=== PATIENT | male | born 1965 | race Caucasian/White ===

== ENCOUNTER 2016-08-14 20:17 | Emergency (ER) ==
--- NOTE | 2016-08-14 22:02 | PROVIDER DOCUMENTATION ---
HPI-Musculoskeletal Pain/Inj - GENERAL Source: patient - HX OF PRESENT ILLNESS-MUSKULOSKELTAL Quality of Pain: reports: aching Severity in ED: moderate Onset/Duration: 4 days ago Timing: still present Modifying Factors: improves with: nothing Any recent injury?: No Locality of Occurance: Home Similar Symptoms Previously?: No Recently seen or treated by another doctor?: No - BACK & NECK PAIN/INJURY Back/Neck Pain Location: reports: lumbar spine Back/Neck Pain Radiation: reports: Upper Legs (anterior legs) History of Chronic Neck or Back Pain?: No <Rosalinda Silva - Last Filed: 08/14/16 23:51> <Joe Oconnor - Last Filed: 08/15/16 01:31> - GENERAL Chief Complaint: Back Pain Stated Complaint: BACK PAIN/COUGH/CONGESTION Time Seen by Provider: 08/14/16 21:25 - HX OF PRESENT ILLNESS-MUSKULOSKELTAL Nature of Presenting Problem: 51 year old M presents to the ED with a cc of lower back pain with an onset of 4 days ago. PT denies loss of bowel or bladder. PT states that he has been working on a truck for the past 2 weeks. (Rosalinda Silva) Review of Systems - Adult - REVIEW OF SYSTEMS - ADULT Constitutional: denies: chills, fever Genitourinary: reports: other (numbness to genital area). denies: dysuria, hematuria, urinary retention Musculoskeletal: reports: back pain. denies: neck pain <Rosalinda Silva - Last Filed: 08/14/16 23:51> Past History - Adult - PAST MEDICAL HISTORY-ADULT Review of Records: reports: Nursing Assessment Review, Medications Reviewed Major Childhood Illnesses: reports: denies history Cardiovascular: reports: HTN, hyperlipidemia, HI Respiratory: reports: denies history Gastrointestinal: reports: denies history Obstetrical/Gynecological: reports: denies history Genitourinary: reports: denies history Musculoskeletal: reports: chronic pain (knee) Neurological: reports: denies history Endocrine/Immune: reports: Diabetes Other Conditions: reports: denies history - PRIOR SURGERIES/PROCEDURES Surgical/Procedure History: reports: tonsillectomy, other (hernia repair) <Rosalinda Silva - Last Filed: 08/14/16 23:51> Physical Exam-Injury Related - Physical Exam-Injury Related Initial Vital Signs Reviewed: Yes General Appearance: appears well, alert, no apparent distress Respiratory: chest non-tender, lungs clear, normal breath sounds Cardiovascular: normal peripheral pulses, regular rate, rhythm, no edema Abdominal Exam: tenderness (right flank) Back Exam: other (lower lumbar paraspinal muscle tenderness) Integumentary: normal color, warm/dry Psych/Mental Status: normal mood/affect, normal thought content, normal thought process, oriented x 3 <Rosalinda Silva - Last Filed: 08/14/16 23:51> Progress <Rosalinda Silva - Last Filed: 08/14/16 23:51> - CT/MRI 1 CT Study: Lumbar Spine Impression: Abnormal (No fx, disc bulges at L4-5 and L5-S1 with spinal stenosis. An MRI is suggested. - radiology) <Joe Oconnor - Last Filed: 08/15/16 01:31> - PLAN OF CARE/RESULTS Progress/Plan/Lab Results: Orders Category Date Time Status Finger Stick Blood Sugar (ED) DIRECTED Care 08/14/16 22:27 Active CHEST-2 VIEWS [RAD] Stat Exams 08/14/16 21:26 Taken LUMBAR SPINE W/O CONTRAST [CT] Stat Exams 08/14/16 22:26 Draft UA [URINALYSIS PL W/POSS RFLX CULT] [URINALYSIS] Stat Lab 08/15/16 00:07 Completed URINE CULTURE [RM] Routine Lab 08/15/16 01:19 Ordered Dexamethasone [Decadron] Med 08/15/16 01:27 Discontinued 10 mg IM NOW ONE Hydromorphone [Dilaudid] Med 08/14/16 22:27 Discontinued 2 mg IM NOW ONE Promethazine [Phenergan] Med 08/14/16 22:27 Discontinued 25 mg IM NOW ONE Laboratory Tests 08/15/16 00:07 Urine Source CLEAN CATCH Urine Color YELLOW Urine Clarity CLEAR Urine pH 7.0 Ur Specific [place] 1.015 Urine Protein 1+(30 mg/dL) A Urine Ketones TRACE Urine Blood NEGATIVE Urine Nitrite NEGATIVE Urine Bilirubin NEGATIVE Urine Urobilinogen 3+(8 mg/dL) Urine Microscopic RBC <10 Urine WBC TRACE A Urine Microscopic WBC <10 Ur Epithelial Cells <10 Urine Crystals CA OXALATE PRESENT Urine Bacteria 3+ Urine Glucose NEGATIVE Vital Signs - 24 hr 08/14/16 20:22 Temperature 98.0 F Pulse Rate 94 H Respiratory 16 Rate Blood Pressure 154/92 O2 Sat by Pulse 99 Oximetry (Joe Oconnor) Departure <Rosalinda Silva - Last Filed: 08/14/16 23:51> - Departure Time of Disposition Order: 01:22 Certified Medical Emergency: Emergent <Joe Oconnor - Last Filed: 08/15/16 01:31> - Departure DIAGNOSIS: Spinal stenosis at L4-L5 level, L4-L5 disc bulge, Bacteria in urine Disposition: HOME 01 Condition: Stable Additional Instructions: FOLLOW UP DR. VITA LOUIE, [facility] WITH THE SPINAL SURGEON OF YOUR CHOICE. RETURN TO [facility] FOR AN OUT-PATIENT MRI OF YOUR LUMBAR SPINE TOMORROW MORNING. ED Follow Up Instructions: You have been treated by a care provider in the Emergency Department. These instructions are being provided to you so you can have an understanding of how to care for yourself upon discharge. Upon discharge from the Emergency Department, you are responsible for making arrangements for follow-up care by a physician of your choice. Take all prescribed medications as directed. Return to the Emergency Department immediately for any new or worsening symptoms. You may call the Physician Referral phone number at [phone] to obtain a list of Physicians who are taking new patients. Prescriptions: Cyclobenzaprine [Flexeril] 10 mg PO TID #20 tablet Ibuprofen [Motrin] 800 mg PO Q8H PRN PRN #20 tablet PRN Reason: inflammation Omeprazole [Prilosec] 20 mg PO DAILY@0700 #20 capsule Referrals: TJ RUSSO CRNP [Primary Care Provider] - Joe Louie DO [STAFF PHYSICIAN] - Call for Appoint. 1-2days Attestation - Scribe Verification/Attestation Scribe:: Rosalinda Silva Acting as Scribe for:: Joe Oconnor Scribe documention review:: This chart was documented by a scribe and accurately reflects the service the provider performed and the decisions made by the provider. <Rosalinda Silva - Last Filed: 08/14/16 23:51> - Physician/ DC Attestation Patient care was provided by Advanced Practice Provider:: Yes Advanced Practice Provider:: Joe Oconnor Advanced Practice Provider documentation review:: The Mid-level provider documentation, treatment plan and medical decision making was reviewed by the physician who agrees with all treatment and medical decision making by the MLP. <Joe Oconnor - Last Filed: 08/15/16 01:31> Physician Attestation
[2016-08-14] MEDS ORDERED: PHENERGAN IM ONE (22:27)
[2016-08-14] MEDS ORDERED: DILAUDID IM ONE (22:27)
[2016-08-15 00:29] LABS: URINE SOURCE CLEAN CATCH
--- NOTE | 2016-08-15 01:14 | Diag Imaging Result Document ---
PROCEDURE NAME: LUMBAR SPINE W/O CONTRAST - 08/14/2016 STUDY: CT lumbar spine without contrast. Good alignment of the lumbar spine. No compressed vertebrae. No other fracture. No subluxation. No prominent bone spurring. There is prominent facet hypertrophy at L4-5. There are bulging disks at L4-5 and L5-S1. There is at least moderate spinal stenosis at L4-5 with at least mild narrowing at each neural foramen. Central disk protrusion at L5-S1, but only mild spinal stenosis with [id number] narrowing of the right neural foramen. IMPRESSION: 1. No fracture. 2. Bulging disks in the lower lumbar spine with spinal stenosis and neuroforaminal narrowing. An MRI is suggested. A preliminary report was given at 10:57 p.m.
[2016-08-15 01:18] LABS: BILIRUBIN URINE NEGATIVE (NEGATIVE); BLOOD URINE NEGATIVE (NEGATIVE); CLARITY CLEAR (CLEAR); COLOR YELLOW; GLUCOSE URINE NEGATIVE (NEGATIVE); LEUKOCYTES URINE TRACE (NEGATIVE); NITRITE URINE NEGATIVE (NEGATIVE); PROTEIN URINE 1+(30 mg/dL) mg/dL (NEGATIVE); SP GRAVITY URINE 1.015
[2016-08-15 01:19] LABS: URINE CRYSTAL CA OXALATE PRESENT /HPF; URINE CULTURE PL NEEDED? YES; URINE EPITHELIAL CELLS <10 /HPF (<10); URINE RBC <10 /HPF (<10); URINE WBC <10 /HPF (<10); UROBILINOGEN URINE 3+(8 mg/dL)
[2016-08-15] MEDS ORDERED: DECADRON IM ONE (01:27)
[2016-08-15] MEDS ORDERED: DECADRON ONE (01:41)
[2016-08-15 01:48] VITALS: BP 137/89
--- NOTE | 2016-08-15 07:50 | Diag Imaging Result Document ---
PROCEDURE NAME: CHEST-2 VIEWS - 08/14/2016 FRONTAL AND LATERAL CHEST, TWO VIEWS: FINDINGS: The lungs are well expanded. The heart is not enlarged. The vessels are not distended. There are no infiltrates. No pleural effusions. Mild scoliosis. IMPRESSION: No pneumonia.
== END 2016-08-15 02:01 | disposition home or self-care (01) ==
LOC: P.ED 20:17
DX: M48.06 Spinal stenosis, lumbar region (principal); M51.86 Other intervertebral disc disorders, lumbar region; R82.71 Bacteriuria; M54.5 Low back pain; R05 Cough; R09.81 Nasal congestion; R20.0 Anesthesia of skin; M79.652 Pain in left thigh; Z79.899 Other long term (current) drug therapy; M79.651 Pain in right thigh; R10.819 Abdominal tenderness, unspecified site; M79.1 Myalgia; I10 Essential (primary) hypertension; E78.5 Hyperlipidemia, unspecified; I25.2 Old myocardial infarction; G89.29 Other chronic pain; M25.569 Pain in unspecified knee; E11.9 Type 2 diabetes mellitus without complications
CPT/HCPCS: 71020; 72131; 81001; 87088; 96372; J1170; J2550